=== PATIENT | female | born 1975 ===

== ENCOUNTER → 2021-11-08 15:18 | Outpatient (BNVA) | payer OTHER, SELFPAY | PROVIDERS: PCP Nurse Practitioner Family; Visit Provider Psychiatry & Neurology Neurology | DX: G43.709 Chronic migraine without aura, not intractable, without status migrainosus (principal) | CPT/HCPCS: 64615; J0585 ==

== ENCOUNTER → 2021-11-14 07:58 | Outpatient (BNVA) | payer OTHER, SELFPAY | PROVIDERS: PCP Nurse Practitioner Family; Visit Provider Nurse Practitioner Family ==

== ENCOUNTER 2021-12-07 14:05 | Outpatient (REF) | payer OTHER, SELFPAY ==
--- NOTE | ~2021-12-07 | MR_ITS ---
EXAMINATION: MR BRAIN WITHOUT AND WITH CONTRAST MR ORBIT FACE AND NECK WITHOUT AND WITH CONTRAST CLINICAL INFORMATION: Trigeminal neuralgia. Right-sided facial pain. COMPARISON: Brain MRI 07/06/2020. TECHNIQUE: Multiplanar, multisequence imaging of the brain and orbit/face/neck was performed before and after the intravenous administration of 6 mL of Gadavist. FINDINGS: There is no vascular compression of the cisternal segments of the trigeminal nerves. The CSF in Meckel's cave is preserved. The foramina ovale are normal. No cerebellopontine angle lesion is seen. There is no abnormal leptomeningeal enhancement corresponding to basilar cisterns. The imaged soft tissues of the neck appear normal. The third division of the trigeminal nerve is normal along its course in the industrial photographer spaces. No marrow signal abnormality is seen within the mandible. There is no abnormal enhancement or edematous change corresponding to the second division of the trigeminal nerve within the infraorbital foramen or at the level of foramen rotundum. The cavernous sinuses opacify symmetrically. The orbits are normal. There is no acute infarction, hemorrhage, mass, or extra-axial fluid collection. No abnormal intracranial enhancement is seen. 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 The ventricles are normal in size without hydrocephalus. The major arterial flow voids appear preserved at the skull base. There is minimal ethmoid mucosal thickening. MR/MR head/brain wo/w con IMPRESSION: No abnormal enhancement or compression of the right-sided trigeminal nerve at its root entry zone or cisternal segment. No intracranial abnormality identified.
--- NOTE | ~2021-12-07 | MR_ITS ---
EXAMINATION: MR BRAIN WITHOUT AND WITH CONTRAST MR ORBIT FACE AND NECK WITHOUT AND WITH CONTRAST CLINICAL INFORMATION: Trigeminal neuralgia. Right-sided facial pain. COMPARISON: Brain MRI 07/06/2020. TECHNIQUE: Multiplanar, multisequence imaging of the brain and orbit/face/neck was performed before and after the intravenous administration of 6 mL of Gadavist. FINDINGS: There is no vascular compression of the cisternal segments of the trigeminal nerves. The CSF in Meckel's cave is preserved. The foramina ovale are normal. No cerebellopontine angle lesion is seen. There is no abnormal leptomeningeal enhancement corresponding to basilar cisterns. The imaged soft tissues of the neck appear normal. The third division of the trigeminal nerve is normal along its course in the seismic interpreter spaces. No marrow signal abnormality is seen within the mandible. There is no abnormal enhancement or edematous change corresponding to the second division of the trigeminal nerve within the infraorbital foramen or at the level of foramen rotundum. The cavernous sinuses opacify symmetrically. The orbits are normal. There is no acute infarction, hemorrhage, mass, or extra-axial fluid collection. No abnormal intracranial enhancement is seen. 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 The ventricles are normal in size without hydrocephalus. The major arterial flow voids appear preserved at the skull base. There is minimal ethmoid mucosal thickening. MR/MR orbits face neck wo/w con IMPRESSION: No abnormal enhancement or compression of the right-sided trigeminal nerve at its root entry zone or cisternal segment. No intracranial abnormality identified.
== END 2021-12-07 14:06 | disposition home or self-care (01) ==
LOC: HO.MRI 14:05
PROVIDERS: Visit Provider Nurse Practitioner Family
DX: G43.709 Chronic migraine without aura, not intractable, without status migrainosus (principal); G50.0 Trigeminal neuralgia
CPT/HCPCS: 70543; 70553; A9585

== ENCOUNTER → 2021-12-10 09:15 | Outpatient (BNVA) | payer OTHER, SELFPAY | PROVIDERS: PCP Nurse Practitioner Family; Visit Provider Nurse Practitioner Family | DX: G50.0 Trigeminal neuralgia (principal); M54.9 Dorsalgia, unspecified; F45.8 Other somatoform disorders; G43.709 Chronic migraine without aura, not intractable, without status migrainosus; Z79.899 Other long term (current) drug therapy | CPT/HCPCS: 99212 ==

== ENCOUNTER → 2022-02-06 15:21 | Outpatient (BNVA) | payer OTHER, SELFPAY | PROVIDERS: PCP Nurse Practitioner Family; Visit Provider Psychiatry & Neurology Neurology | DX: G43.709 Chronic migraine without aura, not intractable, without status migrainosus (principal) | CPT/HCPCS: 64615; J0585 ==

== ENCOUNTER → 2022-02-15 09:35 | Outpatient (BNVA) | payer OTHER, SELFPAY | PROVIDERS: PCP Nurse Practitioner Family; Visit Provider Nurse Practitioner Family | DX: G50.0 Trigeminal neuralgia (principal) ==

== ENCOUNTER → 2022-05-17 13:16 | Outpatient (BNVA) | payer OTHER, SELFPAY | PROVIDERS: PCP Nurse Practitioner Family; Visit Provider Psychiatry & Neurology Neurology | DX: G43.119 Migraine with aura, intractable, without status migrainosus (principal); G43.709 Chronic migraine without aura, not intractable, without status migrainosus | CPT/HCPCS: 64615; J0585 ==

== ENCOUNTER → 2022-08-21 14:45 | Outpatient (BNVA) | payer OTHER, SELFPAY | PROVIDERS: PCP Nurse Practitioner Family; Visit Provider Psychiatry & Neurology Neurology | DX: G43.119 Migraine with aura, intractable, without status migrainosus (principal); F45.8 Other somatoform disorders; G50.0 Trigeminal neuralgia | CPT/HCPCS: 64615; J0585 ==

== ENCOUNTER → 2022-12-09 10:05 | Outpatient (BNVA) | payer BC, SELFPAY | PROVIDERS: PCP Nurse Practitioner Family; Visit Provider Psychiatry & Neurology Neurology | DX: G43.709 Chronic migraine without aura, not intractable, without status migrainosus (principal); G50.0 Trigeminal neuralgia; F45.8 Other somatoform disorders | CPT/HCPCS: 64615; J0585 ==

== ENCOUNTER → 2023-03-12 07:29 | Outpatient (BNVA) | payer BC, MEDICAID, SELFPAY | PROVIDERS: PCP Nurse Practitioner Family; Visit Provider Psychiatry & Neurology Neurology | DX: G43.709 Chronic migraine without aura, not intractable, without status migrainosus (principal) | CPT/HCPCS: 64615; J0585 ==

== ENCOUNTER 2023-06-19 07:19 | Outpatient (AMB) | payer BC, MEDICAID, SELFPAY ==
--- NOTE | 2023-06-19 07:35 | MHC.OFFVIS ---
Intake Vital Signs 06/19/23 07:36 Weight 140 lb 4 oz BP 118/86 Blood Pressure Location Lt brachial Position Sitting Pulse 82 Pulse Source Pulse Oximeter Pulse Oximetry (%) 98 Oxygen Delivery Method Room Air Intake Visit Reasons: Botox-confirmed Intake Note: Botox Injection Director Of Outpatient Services Required: No Allergies honey Allergy (Mild, Verified 06/19/23 07:35) Vomiting Medication List - Last Reconciled 06/19/23 by Kamla Victor MD onabotulinumtoxinA (Botox) 200 units to be injected to 31 sites around the scalp and forehead by physician - 5 units in each site; sumatriptan succinate 50 - 100 mg (0.5 - 1 x 100 mg) PO Q2H PRN 30 days HPI HPI Comments History of Present Illness Details ? 48y/o female comes for treatment of migraines with botox.she reports right jaw pain and frequent headaches ??? Most frequent reported adverse reactions following injection of botox for chronic migraine include neck pain (9%), headache(5%), eyelid ptosis(4%), migraine(4%), muscular weakness(4%), musculuskeletal stiffness(4%), bronchitis(3%), injection site pain (3%), musculoskeletal pain(3%), myalgia(3%), facial paresis(2%), HTN(2%) and muscle spasms(2%) were discussed in detail.Patient agrees to the procedure. ?Botox 200 units vial - [id number] Exp 11/17 diluted with 4 cc of normal saline? Muscles injected- ??? Frontalis 4 sites ? Temporalis- 8 sites ? Cervical paraspinals- 4 sites ??? Trapezius- 6 sites- 10 units each right masseter 30 units right levator 30 units ? Total use- 200units ??? PFSH Medical History Chronic migraine without aura Surgical History No pertinent past surgical history Social History Alcohol intake: never Patient Tobacco Use Status: Never used Tobacco Physical Exam Vital Signs: Last Vital Signs Pulse 82 06/19/23 07:36 BP 118/86 06/19/23 07:36 Pulse Ox 98 06/19/23 07:36 Oxygen Delivery Method Room Air 06/19/23 07:36 Const General: cooperative and no acute distress Nutritional Appearance: average body habitus Orientation/consciousness: patient oriented x3 HEENT Head: Yes normocephalic Neck Neck: Yes full ROM and Yes supple Back/Spine/Pelvis Other: Tight trapezius muscle tightness and mid back pain. Neuro General: patient oriented x3 and CN's II-XI intact bilaterally Cognition (Neuro): normal cognition Gait exam (Neuro): Normal gait present Motor exam (neuro): 5/5 motor strength present throughout Psych Appearance: grossly normal Mental Status: mental status grossly normal Speech and movement: Normal speech and movement present Affect: normal affect Attitude: cooperative Office Procedures Botulinum toxin Injection 82060 - Migraine Procedure code (CPT) selection complete Office Meds onabotulinumtoxinA 200 unit solution for injection Performing Provider: Kamla Victor MD Performing Location: [facility] Administered by: Kamla Victor MD on 06/19/23 08:18 Dose Route Admin Location Dispensed Lot Number Expiration Date [facility] Sprayer Operator 200 unit IM 200 units [id number] 10/23/25 3542-5860-13 ALLERGAN/BOTOX Comments: see hpi Assessment & Plan Assessment & Plan (1) Chronic migraine without aura: Code(s): G43.709 - Chronic migraine without aura, not intractable, without status migrainosus Plan Patient tolerated the procedure well She will call with any side effects Orders: Orders AMB Botulinum toxin Injection Today G43.709 - Chronic migraine without aura, not intractable, without status migrainosus Medications: New baclofen 5 mg PO BEDTIME 30 tabs 3RF Coding Level of Care Code Est Pt Level 1 (84680) Diagnoses Chronic migraine without aura G43.709 CPT Codes Botox Injection - Botox 3: 08998 - Migraine ([id number])
[2023-06-19 07:36] VITALS: BP 118/86; PULSE 82; O2SAT 98
== END 2023-06-19 08:12 | disposition home or self-care (01) ==
PROVIDERS: PCP Nurse Practitioner Family; Visit Provider Psychiatry & Neurology Neurology
DX: G43.709 Chronic migraine without aura, not intractable, without status migrainosus (principal)
CPT/HCPCS: 64615

== ENCOUNTER → 2023-06-19 07:19 | Outpatient (BNVA) | payer BC, MEDICAID, SELFPAY | PROVIDERS: PCP Nurse Practitioner Family; Visit Provider Psychiatry & Neurology Neurology | DX: G43.709 Chronic migraine without aura, not intractable, without status migrainosus (principal) | CPT/HCPCS: 64615; 99211; J0585 ==

== ENCOUNTER 2024-01-06 08:17 | Outpatient (AMB) | payer BC, MEDICAID, SELFPAY ==
--- NOTE | 2024-01-06 08:18 | MHC.OFFVIS ---
Intake Vital Signs 01/06/24 08:20 Height 5 ft 4 in Weight 135 lb BMI 23.2 BP 118/68 Blood Pressure Location Rt brachial Position Sitting Respiration 16 Pulse 76 Pulse Source Palpation Intake Visit Reasons: Botox-CONF Intake Note: Pt presents to the office for Botox injections. Architectural Project Manager Required: No Allergies honey Allergy (Mild, Verified 01/06/24 08:18) Vomiting Medication List - Last Reconciled 01/06/24 by Kamla Victor MD baclofen 5 mg PO BEDTIME onabotulinumtoxinA (Botox) 200 units to be injected to 31 sites around the scalp and forehead by physician - 5 units in each site; sumatriptan succinate 50 - 100 mg (0.5 - 1 x 100 mg) PO Q2H PRN 30 days HPI HPI Comments History of Present Illness Details ? 48y/o female comes for treatment of migraines with botox.she reports right jaw pain and frequent headaches. she missed her lats appointment due to problems at her work ??? Most frequent reported adverse reactions following injection of botox for chronic migraine include neck pain (9%), headache(5%), eyelid ptosis(4%), migraine(4%), muscular weakness(4%), musculuskeletal stiffness(4%), bronchitis(3%), injection site pain (3%), musculoskeletal pain(3%), myalgia(3%), facial paresis(2%), HTN(2%) and muscle spasms(2%) were discussed in detail.Patient agrees to the procedure. ?Botox 200 units vial - [id number] Exp 03/17 diluted with 4 cc of normal saline? Muscles injected- ??? Frontalis 4 sites ? Temporalis- 8 sites ? Cervical paraspinals- 4 sites ??? Trapezius- 6 sites- 10 units each right masseter 30 units right levator 30 units ? Total use- 200units ??? PFSH Medical History Chronic migraine without aura Surgical History No pertinent past surgical history Social History Alcohol intake: never Patient Tobacco Use Status: Never used Tobacco Physical Exam Vital Signs: Last Vital Signs Pulse 76 01/06/24 08:20 Resp 16 01/06/24 08:20 BP 118/68 01/06/24 08:20 BMI result Body Mass Index 23.2 Const General: cooperative and no acute distress Nutritional Appearance: average body habitus Orientation/consciousness: patient oriented x3 HEENT Head: Yes normocephalic Neck Neck: Yes full ROM and Yes supple Back/Spine/Pelvis Other: Tight trapezius muscle tightness and mid back pain. Neuro General: patient oriented x3 and CN's II-XI intact bilaterally Cognition (Neuro): normal cognition Gait exam (Neuro): Normal gait present Motor exam (neuro): 5/5 motor strength present throughout Psych Appearance: grossly normal Mental Status: mental status grossly normal Speech and movement: Normal speech and movement present Affect: normal affect Attitude: cooperative Office Procedures Botulinum toxin Injection 22707 - Migraine Procedure code (CPT) selection complete Office Meds onabotulinumtoxinA 200 unit solution for injection Performing Provider: Kamla Victor MD Performing Location: [facility] [place] [facility] Administered by: Kamla Victor MD on 01/06/24 08:53 Dose Route Admin Location Dispensed Lot Number Expiration Date [facility] [employer] 200 unit subcut 200 units [id number] 02/20/26 8121-5731-49 ALLERGAN/BOTOX Comments: see HPI Assessment & Plan Assessment & Plan (1) Chronic migraine without aura: Code(s): G43.709 - Chronic migraine without aura, not intractable, without status migrainosus Plan Patient tolerated the procedure well She will call with any side effects Orders: Orders AMB Botulinum toxin Injection Today G43.709 - Chronic migraine without aura, not intractable, without status migrainosus Medications: New onabotulinumtoxinA 200 units subcut ONCE 1 ea 0RF migraine G43.709 - Chronic migraine without aura, not intractable, without status migrainosus Coding Level of Care Code Est Pt Level 1 (55651) Diagnoses Chronic migraine without aura G43.709 CPT Codes Botox Injection - Botox 3: 97112 - Migraine ([id number])
[2024-01-06 08:20] VITALS: BP 118/68; PULSE 76; RESP 16; BMI 23.2
== END 2024-01-06 08:46 | disposition home or self-care (01) ==
LOC: HO.HSMS 08:17
PROVIDERS: PCP Nurse Practitioner Family; Visit Provider Psychiatry & Neurology Neurology
DX: G43.709 Chronic migraine without aura, not intractable, without status migrainosus (principal)
CPT/HCPCS: 64615

== ENCOUNTER → 2024-01-06 08:17 | Outpatient (BNVA) | payer BC, MEDICAID, SELFPAY | PROVIDERS: PCP Nurse Practitioner Family; Visit Provider Psychiatry & Neurology Neurology | DX: G43.709 Chronic migraine without aura, not intractable, without status migrainosus (principal); Z79.899 Other long term (current) drug therapy | CPT/HCPCS: 64615; 99211; J0585 ==

== ENCOUNTER 2024-02-03 10:53 | Outpatient (AMB) | payer BC, MEDICAID, SELFPAY ==
--- NOTE | 2024-02-03 10:55 | AM.OFFWIN_ITS ---
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 She reports 1 day prior to this appointment gardening, a piece of wood fell on her left thumb. Patient arrives today with pain, point tenderness, bruising, to the left thumb. Patient states pain radiates into her left wrist as well. She has full range of motion but feels discomfort. Denies any tingling or numbness. Has not utilized any medication for relief. [facility] Medical History Chronic migraine without aura Surgical History No pertinent past surgical history Social History Alcohol intake: never Patient Tobacco Use Status: Never used Tobacco Review of Systems Const All systems reviewed & are unremarkable except as noted in HPI and below Physical Exam Vital Signs: Last Vital Signs Temp 97.0 F 02/03/24 10:56 Pulse 65 02/03/24 10:56 BP 116/70 02/03/24 10:56 Pulse Ox 99 02/03/24 10:56 Oxygen Delivery Method Room Air 02/03/24 10:56 BMI result Body Mass Index 23.9 Const Other: Appearance: Alert.? Oriented X3.? No acute distress.? Head: Normocephalic, atraumatic, Respiratory: No respiratory distress.? Skin: Skin warm and dry.? + bruise to left thumb. No open wounds. Extremities: Full ranger of motion with left thumb. +point tenderness. No obvious deformity. Neuro: Oriented X 3.? No motor deficit.? No sensory deficit. Assessment & Plan Assessment & Plan (1) Pain of left thumb: Comment: Initial reading of x-ray appears negative. Patient will be given naproxen and instructed to rest and ice the affected area. Patient has been educated on signs of worsening symptoms and when to return to the walk-in or when to present to the ED. Code(s): M79.645 - Pain in left finger(s) Plan: Take your medications as prescribed. If you were prescribed antibiotics today, it is important that you take your medication to their entirety, do not skip any doses, do not finish them early. Follow-up with your primary care provider this week. Return to the emergency department with new or worsening symptoms. Such as fevers, chills, chest pain, shortness of breath, nausea, vomiting, dizziness, headache, vision changes, lethargy In case of emergency call 911 (2) Left wrist pain: Comment: Initial x-ray does not reveal fracture. Patient will be given naproxen. Patient educated to rest affected area and utilize ice. Code(s): M25.532 - Pain in left wrist Plan: follow up with pcp. Orders: Orders XR hand wrist LT Today M25.532 - Pain in left wrist, M79.645 - Pain in left finger(s) Medications: New naproxen 500 mg PO BID PRN 20 tabs 0RF pain Coding Level of Care Code Est Pt Level 3 (27850) Diagnoses Pain of left thumb M79.645 Left wrist pain M25.532 Time Spent (min) 26
[2024-02-03 10:56] VITALS: BP 116/70; PULSE 65; TEMP 36.1; O2SAT 99; BMI 23.9
== END 2024-02-03 11:28 | disposition home or self-care (01) ==
PROVIDERS: PCP Nurse Practitioner Family; Visit Provider Nurse Practitioner Primary Care
DX: M79.645 Pain in left finger(s) (principal); M25.532 Pain in left wrist
CPT/HCPCS: 99213

== ENCOUNTER 2024-02-03 11:12 | Outpatient (REF) | payer BC, MEDICAID, SELFPAY ==
--- NOTE | ~2024-02-03 | XR_ITS ---
EXAMINATION: XR HAND/WRIST, LEFT CLINICAL INFORMATION: Pain COMPARISON: None TECHNIQUE: PA, lateral, and oblique views of the left hand and wrist. FINDINGS: No acute visible fracture or dislocation. Mild multi joint arthritic changes. Joint space alignment otherwise maintained. Soft tissues are unremarkable. XR/XR hand wrist LT IMPRESSION: 1. No acute visible fracture or dislocation. 2. Mild multi joint arthritic changes.
== END 2024-02-03 11:13 | disposition home or self-care (01) ==
LOC: HO.HMGCX 11:12
PROVIDERS: Visit Provider Nurse Practitioner Primary Care
DX: M79.645 Pain in left finger(s) (principal); M25.532 Pain in left wrist
CPT/HCPCS: 73110; 73130

== ENCOUNTER 2024-04-07 07:50 | Outpatient (AMB) | payer BC, MEDICAID, SELFPAY ==
--- NOTE | 2024-04-07 07:51 | A.OFFVIS_ITS ---
Vital Signs 04/07/24 07:52 Height 5 ft 4 in Weight 140 lb BMI 24.0 BP 118/70 Blood Pressure Location Rt brachial Position Sitting Respiration 16 Pulse 67 Pulse Source Pulse Oximeter Pulse Oximetry (%) 99 Oxygen Delivery Method Room Air Intake Visit Reasons: Botox - Confirmed Intake Note: Pt presents to the office for Botox injections for migraines. Linux Administrator Required: No Allergies honey Allergy (Mild, Verified 04/07/24 07:52) Vomiting Medication List - Last Reconciled 04/07/24 by aKmla Victor MD naproxen 500 mg PO BID PRN sumatriptan succinate 50 - 100 mg (0.5 - 1 x 100 mg) PO Q2H PRN 30 days HPI Comments Details: ? 49y/o female comes for treatment of migraines with botox.she reports right jaw pain and frequent headaches. she missed her lats appointment due to problems at her work ??? Most frequent reported adverse reactions following injection of botox for chronic migraine include neck pain (9%), headache(5%), eyelid ptosis(4%), migraine(4%), muscular weakness(4%), musculuskeletal stiffness(4%), bronchitis(3%), injection site pain (3%), musculoskeletal pain(3%), myalgia(3%), facial paresis(2%), HTN(2%) and muscle spasms(2%) were discussed in detail.Patient agrees to the procedure. ?Botox 200 units vial - [id number] Exp 05/17 diluted with 4 cc of normal saline? Muscles injected- ??? Frontalis 4 sites ? Temporalis- 8 sites ? Cervical paraspinals- 4 sites ??? Trapezius- 6 sites- 10 units each right levator 40 units ? Total use- 180units Discarded 20 units ??? PFS Medical History (Updated 04/07/24 @ 08:24 by Kamla Victor MD) Chronic migraine without aura, intractable, without status migrainosus Chronic migraine without aura Surgical History No pertinent past surgical history Social History Alcohol intake: never Patient Tobacco Use Status: Never used Tobacco Physical Exam Vital Signs: Last Vital Signs Pulse 67 04/07/24 07:52 Resp 16 04/07/24 07:52 BP 118/70 04/07/24 07:52 Pulse Ox 99 04/07/24 07:52 Oxygen Delivery Method Room Air 04/07/24 07:52 BMI result Body Mass Index 24.0 Const General: cooperative and no acute distress Nutritional Appearance: average body habitus Orientation/consciousness: patient oriented x3 HEENT Head: Yes normocephalic Neck Neck: Yes full ROM and Yes supple Back/Spine/Pelvis Other: Tight trapezius muscle tightness and mid back pain. Neuro General: patient oriented x3 and CN's II-XI intact bilaterally Cognition (Neuro): normal cognition Gait exam (Neuro): Normal gait present Motor exam (neuro): 5/5 motor strength present throughout Psych Appearance: grossly normal Mental Status: mental status grossly normal Speech and movement: Normal speech and movement present Affect: normal affect Attitude: cooperative Office Procedures Botulinum toxin Injection 53418 - Migraine Procedure code (CPT) selection complete Office Meds onabotulinumtoxinA 200 unit solution for injection Performing Provider: Kamla Victor MD Performing Location: [facility] Administered by: Kamla Victor MD on 04/07/24 08:32 Dose Route Admin Location Dispensed Lot Number Expiration Date [facility] Cyber Security Architect 180 unit subcut 200 units [id number] 04/22/26 5542-1559-01 ALLERGAN/BOTOX Comments: see HPI Assessment & Plan Assessment & Plan (1) Chronic migraine without aura, intractable, without status migrainosus: Code(s): G43.719 - Chronic migraine without aura, intractable, without status migrainosus Category: Medical Plan Patient tolerated the procedure well she will call with any side effects Orders: Orders AMB Botulinum toxin Injection Today G43.719 - Chronic migraine without aura, intractable, without status migrainosus Medications: New onabotulinumtoxinA 200 units subcut ONCE 1 ea 0RF migraine G43.719 - Chronic migraine without aura, intractable, without status migrainosus Coding Level of Care Code Est Pt Level 1 (99145) Diagnoses Chronic migraine without aura, intractable, without status migrainosus G43.719 CPT Codes Botox Injection - Botox 3: 28770 - Migraine ([id number])
[2024-04-07 07:52] VITALS: BP 118/70; PULSE 67; RESP 16; O2SAT 99; BMI 24.0
== END 2024-04-07 08:11 | disposition home or self-care (01) ==
PROVIDERS: PCP Nurse Practitioner Family; Visit Provider Psychiatry & Neurology Neurology
DX: G43.719 Chronic migraine without aura, intractable, without status migrainosus (principal)
CPT/HCPCS: 64615

== ENCOUNTER → 2024-04-07 07:50 | Outpatient (BNVA) | payer BC, MEDICAID, SELFPAY | PROVIDERS: PCP Nurse Practitioner Family; Visit Provider Psychiatry & Neurology Neurology | DX: G43.719 Chronic migraine without aura, intractable, without status migrainosus (principal) | CPT/HCPCS: 64615; 99211; J0585 ==

== ENCOUNTER 2024-07-08 07:58 | Outpatient (AMB) | payer BC, SELFPAY ==
--- NOTE | 2024-07-08 07:59 | MHC.OFFVIS ---
Vital Signs 07/08/24 08:01 Height 5 ft 4 in Weight 140 lb BMI 24.0 Intake Visit Reasons: Botox Intake Note: patient presents for botox injection Allergies honey Allergy (Mild, Verified 04/07/24 07:52) Vomiting Medication List - Last Reconciled 07/08/24 by Kamla Victor MD naproxen 500 mg PO BID PRN sumatriptan succinate 50 - 100 mg (0.5 - 1 x 100 mg) PO Q2H PRN 30 days HPI Comments Details: ? 49y/o female comes for treatment of migraines with botox.she reports right jaw pain and frequent headaches. she missed her lats appointment due to problems at her work ??? Most frequent reported adverse reactions following injection of botox for chronic migraine include neck pain (9%), headache(5%), eyelid ptosis(4%), migraine(4%), muscular weakness(4%), musculuskeletal stiffness(4%), bronchitis(3%), injection site pain (3%), musculoskeletal pain(3%), myalgia(3%), facial paresis(2%), HTN(2%) and muscle spasms(2%) were discussed in detail.Patient agrees to the procedure. ?Botox 200 units vial - [id number] Exp 11/18 diluted with 4 cc of normal saline? Muscles injected- ??? Frontalis 4 sites ? Temporalis- 8 sites ? Cervical paraspinals- 4 sites ??? Trapezius- 6 sites- 10 units each right levator 40 units ? Total use- 180units Discarded 20 units ??? PFSH Medical History Chronic migraine without aura, intractable, without status migrainosus Chronic migraine without aura Surgical History No pertinent past surgical history Social History Alcohol intake: never Patient Tobacco Use Status: Never used Tobacco Physical Exam Vital Signs: BMI result Body Mass Index 24.0 Const General: cooperative and no acute distress Nutritional Appearance: average body habitus Orientation/consciousness: patient oriented x3 HEENT Head: Yes normocephalic Neck Neck: Yes full ROM and Yes supple Back/Spine/Pelvis Other: Tight trapezius muscle tightness and mid back pain. Neuro General: patient oriented x3 and CN's II-XI intact bilaterally Cognition (Neuro): normal cognition Gait exam (Neuro): Normal gait present Motor exam (neuro): 5/5 motor strength present throughout Psych Appearance: grossly normal Mental Status: mental status grossly normal Speech and movement: Normal speech and movement present Affect: normal affect Attitude: cooperative Office Procedures Botulinum toxin Injection 71538 - Migraine Procedure code (CPT) selection complete Office Meds onabotulinumtoxinA 200 unit solution for injection Performing Provider: Kamla Victor MD Performing Location: [facility] Administered by: Kamla Victor MD on 07/08/24 08:36 Dose Route Admin Location Dispensed Lot Number Expiration Date [facility] Photographic Machine Operator 180 unit subcut 200 units [id number] 10/23/26 8526-8053-44 ALLERGAN/BOTOX Comments: see HPI Assessment & Plan Assessment & Plan (1) Chronic migraine without aura, intractable, without status migrainosus: Code(s): G43.719 - Chronic migraine without aura, intractable, without status migrainosus Category: Medical Plan Patient tolerated the procedure well she will call with any side effects Orders: Orders AMB Botulinum toxin Injection Today G43.719 - Chronic migraine without aura, intractable, without status migrainosus Medications: New onabotulinumtoxinA 200 units subcut ONCE 1 ea 0RF migraine G43.719 - Chronic migraine without aura, intractable, without status migrainosus Coding Level of Care Code Est Pt Level 1 (76064) Diagnoses Chronic migraine without aura, intractable, without status migrainosus G43.719 CPT Codes Botox Injection - Botox 3: 40343 - Migraine ([id number])
[2024-07-08 08:01] VITALS: BMI 24.0
== END 2024-07-08 08:31 | disposition home or self-care (01) ==
PROVIDERS: PCP Nurse Practitioner Family; Visit Provider Psychiatry & Neurology Neurology
DX: G43.719 Chronic migraine without aura, intractable, without status migrainosus (principal)
CPT/HCPCS: 64615

== ENCOUNTER → 2024-07-08 07:58 | Outpatient (BNVA) | payer BC, SELFPAY | PROVIDERS: PCP Nurse Practitioner Family; Visit Provider Psychiatry & Neurology Neurology | DX: G43.719 Chronic migraine without aura, intractable, without status migrainosus (principal) | CPT/HCPCS: 64615; 99211; J0585 ==

== ENCOUNTER 2024-10-19 08:02 | Outpatient (AMB) | payer OTHER, SELFPAY ==
[2024-10-19 08:28] VITALS: BMI 24.0
--- NOTE | 2024-10-19 08:28 | A.OFFVIS_ITS ---
Vital Signs 10/19/24 08:28 Height 5 ft 4 in Weight 140 lb BMI 24.0 Intake Visit Reasons: Botox Intake Note: Patient presents for botox injection Allergies honey Allergy (Mild, Verified 10/19/24 08:30) Vomiting HPI Comments Details: ? 49y/o female comes for treatment of migraines with botox.she reports right jaw pain and frequent headaches. she missed her lats appointment due to problems at her work ??? Most frequent reported adverse reactions following injection of botox for chronic migraine include neck pain (9%), headache(5%), eyelid ptosis(4%), migraine(4%), muscular weakness(4%), musculuskeletal stiffness(4%), bronchitis(3%), injection site pain (3%), musculoskeletal pain(3%), myalgia(3%), facial paresis(2%), HTN(2%) and muscle spasms(2%) were discussed in detail.Patient agrees to the procedure. ?Botox 200 units vial - [id number] Exp 06/17 diluted with 4 cc of normal saline? Muscles injected- ??? Frontalis 4 sites ? Temporalis- 8 sites ? Cervical paraspinals- 4 sites ??? Trapezius- 6 sites- 10 units each right levator 40 units ? Total use- 180units Discarded 20 units ??? [facility] Medical History Chronic migraine without aura, intractable, without status migrainosus Chronic migraine without aura Surgical History No pertinent past surgical history Social History Alcohol intake: never Patient Tobacco Use Status: Never used Tobacco Physical Exam Vital Signs: BMI result Body Mass Index 24.0 Const General: cooperative and no acute distress Nutritional Appearance: average body habitus Orientation/consciousness: patient oriented x3 HEENT Head: Yes normocephalic Neck Neck: Yes full ROM and Yes supple Back/Spine/Pelvis Other: Tight trapezius muscle tightness and mid back pain. Neuro General: patient oriented x3 and CN's II-XI intact bilaterally Cognition (Neuro): normal cognition Gait exam (Neuro): Normal gait present Motor exam (neuro): 5/5 motor strength present throughout Psych Appearance: grossly normal Mental Status: mental status grossly normal Speech and movement: Normal speech and movement present Affect: normal affect Attitude: cooperative Office Procedures Botulinum toxin Injection 81054 - Migraine Procedure code (CPT) selection complete Office Meds onabotulinumtoxinA 200 unit solution for injection Performing Provider: Kamla Victor MD Performing Location: [facility] Administered by: Kamla Victor MD on 10/19/24 08:52 Dose Route Admin Location Dispensed Lot Number Expiration Date [facility] Director Supply Chain 180 unit IM 200 units [id number] [employer] Comments: see HPI Assessment & Plan Assessment & Plan (1) Chronic migraine without aura, intractable, without status migrainosus: Code(s): G43.719 - Chronic migraine without aura, intractable, without status migrainosus Category: Medical Plan Patient tolerated the procedure well she will call with any side effects Orders: Orders AMB Botulinum toxin Injection Today G43.719 - Chronic migraine without aura, intractable, without status migrainosus Medications: New onabotulinumtoxinA 200 units IM ONCE 1 ea 0RF migraine G43.719 - Chronic migraine without aura, intractable, without status migrainosus Coding Level of Care Code Est Pt Level 1 (08665) Diagnoses Chronic migraine without aura, intractable, without status migrainosus G43.719 CPT Codes Botox Injection - Botox 3: 38900 - Migraine ([id number])
== END 2024-10-19 08:45 | disposition home or self-care (01) ==
PROVIDERS: PCP Nurse Practitioner Family; Visit Provider Psychiatry & Neurology Neurology
DX: G43.719 Chronic migraine without aura, intractable, without status migrainosus (principal)
CPT/HCPCS: 64615

== ENCOUNTER → 2024-10-19 08:02 | Outpatient (BNVA) | payer OTHER, SELFPAY | PROVIDERS: PCP Nurse Practitioner Family; Visit Provider Psychiatry & Neurology Neurology | DX: G43.719 Chronic migraine without aura, intractable, without status migrainosus (principal) | CPT/HCPCS: 64615; 99211; J0585 ==

== ENCOUNTER 2025-02-09 07:46 | Outpatient (AMB) | payer OTHER, SELFPAY ==
[2025-02-09 08:06] VITALS: BP 120/70; PULSE 81; O2SAT 98; BMI 24.9
--- NOTE | 2025-02-09 08:06 | A.OFFVIS_ITS ---
Vital Signs 02/09/25 08:06 Height 5 ft 4 in Weight 145 lb BMI 24.9 BP 120/70 Blood Pressure Location Rt brachial Position Sitting Pulse 81 Pulse Source Pulse Oximeter Pulse Oximetry (%) 98 Oxygen Delivery Method Room Air Intake Visit Reasons: Follow up Account Executive Key Accounts Required: No Accompanied by: Self / Same As Patient Allergies honey Allergy (Mild, Verified 02/09/25 08:09) Vomiting Medication List - Last Reconciled 02/09/25 by GERRY Lawler coenzyme Q10 (CoQ-10) 100 mg PO DAILY sumatriptan succinate 50 - 100 mg (0.5 - 1 x 100 mg) PO Q2H PRN 30 days HPI Comments Details: 50-yr-old female presents for f/u visit for chronic migraine. Pt reports she has continued to have good effect from Botox, however she rec'd a much higher bill for her botox than she had rec'd before- and she cannot afford this amount. She notes her insurance changed. Her last Botox injection was 10/16/24, and she is now overdue for her Botox, however she cannot afford to continue it. She started invisalign 2 months ago, which has also been helping her migraines stemming from her TMJ symptoms. She is taking Tylenol 3-4 a week for milder headaches- sometimes triggered by stress. She is using Sumatriptan 100mg- 1-2 x's per week, which is effective. [facility] Medical History Chronic migraine without aura, intractable, without status migrainosus Chronic migraine without aura Surgical History No pertinent past surgical history Social History Alcohol intake: never Patient Tobacco Use Status: Never used Tobacco Physical Exam Vital Signs: Last Vital Signs Pulse 81 02/09/25 08:06 BP 120/70 02/09/25 08:06 Pulse Ox 98 02/09/25 08:06 Oxygen Delivery Method Room Air 02/09/25 08:06 BMI result Body Mass Index 24.9 Const General: cooperative and no acute distress Nutritional Appearance: average body habitus Orientation/consciousness: patient oriented x3 HEENT Head: Yes normocephalic Neuro General: patient oriented x3 and CN's II-XI intact bilaterally Cognition (Neuro): normal cognition Gait exam (Neuro): Normal gait present Motor exam (neuro): 5/5 motor strength present throughout Psych Appearance: grossly normal Mental Status: mental status grossly normal Speech and movement: Normal speech and movement present Affect: normal affect Attitude: cooperative Assessment & Plan Assessment & Plan (1) Chronic migraine without aura: Code(s): G43.709 - Chronic migraine without aura, not intractable, without status migrainosus Category: Medical Qualifiers: Status migrainosus presence: without status migrainosus Intractability: not intractable Qualified Code(s): G43.709 - Chronic migraine without aura, not intractable, without status migrainosus (2) 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 For overall headache management: * Optimize good self-care, including but not limited to maintaining a healthy diet, adequate fluid intake, adequate sleep, and engaging in regular physical activity. * Track headaches, especially after any treatment regimen changes. Migraine BudKarmarama is one of many headache tracking apps. * Information shared on non-pharmacological interventions which may help to alleviate headache attack burden. * For light sensitivity: Patient may benefit from trying blue light filtering glasses, green glasses, green light therapy. * For sound sensitivity: Patent may benefit from trying noise cancellation ear plugs. * Neuromodulation devices, which can be used alone or with pharmacological treatment. * Continue Invisalign, as this is already helping her TMJ and right sided headache symptoms. For acute migraine tx: Continue Sumatriptan 100mg tab, 1/2 - 1 tab (50-100mg) at onset of headache, may repeat in 2 hours. Max of 2 tabs (200mg) per 24 hours. May take sumatriptan with OTC Tylenol 650-1,000mg every 4-6 hours, Ibuprofen (liquid gels) 600mg every 6 hours, or Naproxen (liquid gels) 440mg q 12 hrs prn. For chronic migraine prevention: Stop Botox- was effective, but pt cannot afford it. Start Ajovy 225mg/1.5ml autoinjector- injection 225mg subcutaneously once a month. Potential adverse effects of Ajovy include but are not limited to injection site reactions. Pt advised Ajovy will likely require insurance prior authorization. Ajovy should be refrigerated until 1 hr prior use. Once approved and available patient would like in office injection training. Previous migraine prevention trials: Nortriptyline- ineffective x's > 3 months and > 20mg caused drowsiness, Duloxetine- caused cognitive and dizziness s/s, tegretol- not tolerated. Topiramate- did not tolerate. Gabapentin- did not happen. Verapamil- did not tolerate- made her dizzy. Migraine tx contraindications: would avoid Beta-blockers as pt has not tolerated anti-HTNs txs before- causes dizziness. Medications: New fremanezumab-vfrm (Ajovy) administer 225mg sc q month 225 mg (1.5 mL) subcut ONCE 30 days 1.5 mL 6RF G43.719 - Chronic migraine without aura, intractable, without status migrainosus Coding Level of Care Code Est Pt Level 4 (01371) Diagnoses Chronic migraine without aura without status migrainosus, not intractable G43.709 Status migrainosus presence: without status migrainosus Intractability: not intractable Bruxism F45.8 Chronic migraine without aura, intractable, without status migrainosus G43.719
--- OUTSIDE RECORDS SUMMARY | 2025-02-09 08:10 | XMS_ITS | Clinical Summary ---
Author Organization [facility] Address [address] [place] [address] Care Team Providers Care Exhibit Preparator Name Role Phone Claire Jordan Primary Care Provider [phone] Source Comments PLEASE NOTE, if this patient is a minor, it may be UNLAWFUL to discuss sensitive information that is contained in these records (such as FAMILY PLANNING, MENTAL HEALTH or SUBSTANCE ABUSE) with the minor patient's parent or other person without the patient's specific authorization.[facility] Allergies Active Allergy Reactions Criticality Noted Date Comments Honey Nausea and Vomiting 06/12/2016 Lactose 02/07/2021 Medications SUMAtriptan succinate (IMITREX) 100 mg tablet TAKE 1/2 TO 1 TABLET AT ONSET OF HEADACHE. MAY REPEAT IN 2 HOURS. MAX OF 2 TABLETS PER DAY/4 TABLETS PER WEEK. MAY TAKE WITH IBUPROFEN OR NA 1 Active naproxen (NAPROSYN) 500 mg tablet TAKE 1 TABLET BY MOUTH TWICE DAILY NEEDED FOR PAIN 30 Tablet 1 Active amitriptyline (ELAVIL) 10 mg tabletIndicatio ns:Fibromyalgia Take 1 Tablet by mouth nightly at bedtime Take 1 to 3 hours before bedtime. 30 Tablet 2 2 Active hyoscyamine sulfate 0.125 mg tablet TAKE ONE TABLET BY MOUTH THREE TIMES A DAY FOR INTESTINAL SPASM 3 Active meclizine (ANTIVERT) 25 mg tablet Take 2 Tablets by mouth 2 (two) times daily as needed for nausea or dizziness 60 Tablet 3 Active Active Problems Problem Noted Date Diagnosed Date Chronic bilateral low back pain with left-sided sciatica 12/17/2022 Overview (12/17/2022): Normal lumbar spine x-ray at [facility] 09/2022 Arthralgia 05/21/2022 Complaints of total body pain 05/21/2022 Myalgia 05/21/2022 Fibromyalgia 02/07/2021 Migraine with aura and witho ut status migrainosus, not intractable 10/22/2019 Lipoma of neck 06/12/2016 Overview (02/07/2021): SKIN CYST: PATHOLOGY REPORT N/A 11/01/2016 excision of posterior neck lipoma at [facility]; pathology: fibrolipoma H/O hysterectomy for benign disease 06/12/2016 Overview (05/31/2020): Age: late 30/s Immunizations Immunization Administration Dates Next Due Flu, Preservative Free 07/04/2021,07/03/2018 PFIZER COVID VACCINE, PURPLE CAP, 12+ 06/05/2021 ,05/15/2021 PPD 03/05/2017 TDAP 10/22/2019 Family History Medical History Relation Name Comments Cancer Father throat ca. at age 81 Diabetes Mother Hypertension Mother Relation Name Status Comments Father Mother Alive Social History Tobacco Use Types Packs/Day Years Used Date Smoking Tobacco: Never Smokeless Tobacco: Never Tobacco Cessation:Counseling Given: Not Answered Alcohol Use Standard Drinks/Week Comments No 0 (1 standard drink = 0.6 oz pur e alcohol) Social Connections Answer Date Recorded Connectedness 0 05/21/2022 Financial Resource Strain Answer Date R ecorded Financial Resource Strain 0 2021 Stress Answer Date Recorded Stress 0 05/21/2022 Physical Activity Answer Date Recorded Physical Activity 0 05/16/2019 Food Insecurity Answer Date Recorded Food 0 05/21/2022 Transportation Needs Answer Date Record ed Transportation 0 05/21/2022 Housing Stability Answer Date Recorded Housing 0 05/21/2022 Safety and Environment Answer Date Ramin rded Safety 0 05/21/2022 Utilities Answer Date Recorded Utilities 0 05/21/2022 Employment Answer Date Recorded Employment 0 05/16/2019 Comments No Sex and Gender Information Value Date Recorded Sex Assigned at Female 07/05/2017 5:08 AM PDT Legal Sex Female 6:30 AM PDT Gender Identity Female 07/05/2017 5:08 AM PDT Sexual Orientation Straight 07/05/2017 5: 08 AM PDT Last Filed Vital Signs Vital Sign Reading Time Taken Comments Blood Pressure 117/84 02/10/2023 4:24 PM EDT Pulse 83 02/10/2023 4:24 PM EDT Temperature 36.6 ??C (97.9 ??F) 02/10/2023 4:24 PM ED T Respiratory Rate 12 02/10/2023 4:24 PM EDT Oxygen Saturation 97% 07/04/2021 10:13 AM EDT Inhaled Oxygen Concentration - - Weight 64.4 kg (142 lb) 05/05/2023 11:04 AM EDT Height 162.6 cm (5' 4 ) 05/05/2023 11:04 AM EDT Body Mass Index 24.37 05/05/2023 11:04 AM EDT Plan of Treatment Health Maintenance Due Date Last Done Comments Anxiety Screening 1975 HPV Screening 1975 Tobacco Screening 1975 Imm-Hepatitis B (1 of 3 - 19 + 3-dose series) 01/14/1995 Annual Wellness (Adult): Indicated (All Coverage) 07/03/2019 07/03/2018 CT Colonography 01/14/2021 FIT/gFOBT 01/14/2021 Fecal DNA 01/14/2021 Flexible Sigmoidoscopy 01/14/2021 Breast Cancer Screening (Mammogram) 07/11/2022 07/11/2021 Relationship Safety Screening/Counseling 05/21/2023 05/21/2022, 02/07/2021, 09/17/2019 Diabetes Screening 02/08/2024 02/07/2021, 0 02/07/2021, 09/17/2019, Additional history exists Hypertension Screening (#1) 02/10/2024 [id number] ( season) 2024 021, 05/15/2021 Imm-Influenza (#1) 2024 07/04/2021, 1 , 06/12/2016 Alcohol and Drug Screen 09/22/2024 05/21/20 22, 02/07/2021, 05/31/2020, Additional history exists Depression Annual Screen 09/22/2024 022, 04/21/2018, 06/12/2016 Lipid Screening 02/07/2026 02/07/2021, 06/12/2016 Imm-DTaP/Tdap/Td (2 - Td or Tdap) 10/22/2029 020 Colonoscopy 12/19/2031 12/18/2021, 12/18/2021 Colorectal Cancer Screening 12/19/2031 Pap Smear Discontinued 04/27/2014 (Gladys leach by Outside Provider) HIV Screening Completed 02/07/2021 Hepatitis C Screening Completed 02/07/2021 Cervical Ablation/Cold-Knife Conization Discontinued Cervical Cancer Screening Discontinued Cervical Cryotherapy Discontinued Colposcopy Discontinued Endometrial Biopsy Discontinued Excision/Leep Discontinued HPV Genotyping Discontinued Pap + HPV Discontinued Vaginal Pap Discontinued Vulvoscopy Discontinued Procedures Procedure Name Priority Date/Time Associated Diagnosis Comments HISTORIC COLONOSCOPY 12/18/2021 3:00 AM EDT REFERRAL FOR DIAGNOSTIC MAMMOGRAM Routine 07/11/2021 3:00 AM EDT Breast pain, left HIV 1/2 AG & AB W/RFLX (4TH GEN) Routine 02/07/2021 11:13 AM EDT Screening for viral disease HEPATITIS C AB W/RFLX HCV RNA, QT, RT PCR Routine 02/07/2021 11:13 AM EDT Screening for viral disease COMPREHENSIVE METABOLIC PANEL Routine 02/07/2021 11:13 AM EDT Encounter for wellness examination in adult LIPID PANEL Routine 02/07/2021 11:13 AM EDT Encounter for wellness examination in adult from Last 3 Months or Most Recently Relevant to Health Maintenance Results * HISTORIC COLONOSCOPY (12/18/2021 3:00 AM EDT) 12/18/2021 3:00 AM EDT Zandra Zhao [facility] PROCEDURES Final Result * REFERRAL FOR DIAGNOSTIC MAMMOGRAM (07/11/2021 3:00 AM EDT) 07/11/2021 3:00 AM EDT Alexander Martinez MD IMG RFL MAMMO Edited Resul t - Final * HEPATITIS C AB W/RFLX HCV RNA, QT, RT PCR (02/07/2021 11:13 AM EDT) HEPATITIS C ANTIBODY NON-REACT ARIANNE NON-REACT ARIANNE [facility] SIGNAL TO CUT-OFF 0.01 <1.00 [facility] Comment: HCV antibody was non-reactive. There is no laboratory evidence of HCV infection. In most cases, no further action is required. However, if recent HCV exposure is suspected, a test for HCV RNA (test code 52857) is suggested. For additional information please refer to http://education.[employer]akeMate/faq/PFX79o7 (This link is being provided for informational/ educational purposes only.) Blood Blood / Unknown 02/07/2021 1 1:13 AM EDT 02/07/2021 11:14 AM EDT Narrative [facility] - 02/07/2021 9:44 PM EDT FASTING:YES Zandra Zhao [facility] LAB - BLOOD DRAW Final Resul t [facility] [address] [place] [id number], [employer] [address] [address] * COMPRE METAB PANEL (02/07/2021 11:13 AM EDT) GLUCOSE 88 65 - 99 mg/dL [facility] Comment: ?Fasting reference interval UREA NITROGEN (BUN) 14 7 - 25 mg/dL [facility] CREATININE (blood) 0.77 0.50 - 1.10 mg/dL [facility] GFR ESTIMATED 93 > OR = 60 mL/min/1 .73m2 [facility] EGFR 108 > OR = 60 mL/min/1 .73m2 [facility] BUN/CREATININE RATIO NOT APPLICABLE [facility] SODIUM 140 135 - 146 mmol/L [facility] POTASSIUM 5.2 3.5 - 5.3 mmol/L [facility] CHLORIDE 104 98 - 110 mmol/L [facility] CARBON DIOXIDE 27 20 - 32 mmol/L [facility] CALCIUM 10.2 8.6 - 10.2 mg/dL [facility] PROTEIN, TOTAL 7.4 6.1 - 8.1 g/dL [facility] ALBUMIN 4.6 3.6 - 5.1 g/dL [facility] GLOBULIN 2.8 1.9 - 3.7 g/dL (calc) [facility] ALBUMIN/GLOBUL IN RATIO 1.6 1.0 - 2.5 (calc) [facility] BILIRUBIN, TOTAL 0.4 0.2 - 1.2 mg/dL [facility] ALKALINE PHOSPHATASE 71 31 - 125 U/L [facility] AST 21 10 - 35 U/L [facility] ALT 22 6 - 29 U/L [facility] Blood Blood / Unknown 02/07/2021 1 1:13 AM EDT 02/07/2021 11:14 AM EDT Narrative [facility] - 02/07/2021 10:32 PM EDT FASTING:YES Zandra Zhao [facility] LAB - BLOOD DRAW Final Resul t [facility] [address] [address], [employer] [address] [address] from Last 3 Months or Most Recently Relevant to Health Maintenance Insurance [place] DENTAL [facility] SAFETY NET DENTAL DENTAL [facility] Member Subscriber Plan / Payer ( fective 2022-Present) Name:Héctor Harper Relation to Subscriber:Self Name:Héctor Harper Payer ID:[id number] Group ID:Not on file Type:[employer] Address: [address] [facility] [id number] [place] [address] [place] Care Teams Exhibit Preparator Relationship Specialty Start Date End Date Claire Jordan PA [address] [place] [address] PCP - General Primary Care 09/30/23
== END 2025-02-09 08:50 | disposition home or self-care (01) ==
LOC: HO.HSMS 07:47
PROVIDERS: PCP Nurse Practitioner Family; Visit Provider Nurse Practitioner Family
DX: G43.709 Chronic migraine without aura, not intractable, without status migrainosus (principal); F45.8 Other somatoform disorders; G43.719 Chronic migraine without aura, intractable, without status migrainosus
CPT/HCPCS: 99214

== ENCOUNTER → 2025-02-25 08:47 | Outpatient (BNVA) | payer OTHER, SELFPAY | PROVIDERS: PCP Nurse Practitioner Family; Visit Provider Nurse Practitioner Family ==